=== PATIENT | female | born 1965 | race African-American/Black ===

== ENCOUNTER 2018-03-30 13:17 | Inpatient (IN) | payer OTHER ==
[2018-03-30 14:42] VITALS: BMI 18.8
--- NOTE | 2018-03-30 15:18 | HP ---
COWS - Scale Resting Pulse: 1= [place] 81-100 Sweatin=Flushed/Facial Moisture Restless Observation: 3= Extraneous Movement Pupil Size: 2= Moderately Dilated Bone or Joint Aches: 2= Severe Diffuse Aches Runny Nose/ Eye Tearin= Runny Nose/Eyes GI Upset > 30mins: 3= Vomiting/Diarrhea Tremor Observation: 2= Slight Tremor Visible Yawning Observation: 2= >3x During Session Anxiety or Irritability: 2=Irritable/Anxious Goose Flesh Skin: 0=Smooth Skin COWS Score: 21 CIWA Score - CIWA Score Nausea/Vomitin Muscle Tremors: 3 Anxiety: 3 Agitation: 3 Paroxysmal Sweats: 1-Minimal Palms Moist Orientation: 0-Oriented Tacttile Disturbances: 1-Very Mild Itch/Numbness Auditory Disturbances: 1-Very Mild Visual Disturbances: 0-None Headache: 2-Mild CIWA-Ar Total Score: 17 Admission ROS BHS - HPI Chief Complaint: for inpatient detox from heroin,alcohol,cocaine Allergies/Adverse Reactions: Allergies Allergy/AdvReac Type Severity Reaction Status Date / Time No Known Allergies Allergy Verified 03/30/18 15:13 History of Present Illness: this 52 years old female with heroin,alcohol,cocaine dependence,seeking detox, withdrawal symptom,last detox 2017 [facility] syncope hepatitis c sle,borderlined dm,non compliance with medication prolapsed uterus nicotine dependence weight loss anxiety,depression,insomnia rash both hands asthma multiple admissions in detox but keep relapsing longest period of sobriety 20 years Exam Limitations: No Limitations - Ebola screening Have you traveled outside of the country in the last 21 days: No (N) Have you had contact with anyone from an Ebola affected area: No Have you been sick,other than usual withdrawal symptoms: No Do you have a fever: No - Review of Systems Constitutional: Chills, Loss of Appetite, Malaise, Night Sweats, Changes in sleep, Unintentional Wgt. Loss, Other EENT: reports: Tearing, Nose Congestion Respiratory: reports: Wheezing (asthma), Other Cardiac: reports: No Symptoms Reported GI: reports: Diarrhea, Nausea, Vomiting, Abdominal cramping : reports: No Symptoms Reported Musculoskeletal: reports: Back Pain, Joint Pain, Muscle Pain, Joint Stiffness Integumentary: reports: Dryness Neuro: reports: Headache, Tremors Endocrine: reports: No Symptoms Reported, Other (sle) Hematology: reports: No Symptoms Reported Psychiatric: reports: No Sypmtoms Reported, Judgement Intact, Mood/Affect Appropiate, Orientated x3 (insomnia), Anxious, Depressed Patient History - Patient Medical History Hx Anemia: No Hx Asthma: Yes (on albuterol inhaler) Hx Chronic Obstructive Pulmonary Disease (COPD): No Hx Cancer: No Hx Cardiac Disorders: No Hx Congestive Heart Failure: No Hx Hypertension: Yes (non compliance) Hx Hypercholesterolemia: No Hx Pacemaker: No HX Cerebrovascular Accident: No Hx Seizures: No Hx Dementia: No Hx Diabetes: Yes (borderlined dm) Hx Gastrointestinal Disorders: Yes (gastritis) Hx Liver Disease: Yes (hepatitis c) Hx Genitourinary Disorders: Yes (prolapsed uterus) Hx Sexually Transmitted Disorders: No Hx Renal Disease (ESRD): No Hx Thyroid Disease: No Hx Human Immunodeficiency Virus (HIV): No (last 01/19) Hx Hepatitis C: Yes (not treated) Hx Depression: Yes (anxiety) Hx Suicide Attempt: No Hx Bipolar Disorder: No Hx Schizophrenia: No Other Medical History: insomnia - Patient Surgical History Past Surgical History: No - PPD History Previous Implant?: Yes Documented Results: Negative w/o proof Implanted On Prior [facility] Admission?: No PPD to be Administered?: Yes - Reproductive History Patient is a Female of Child Bearing Age (11 -55 yrs old): Yes Patient : No - Smoking Cessation Smoking history: Current every day smoker Have you smoked in the past 12 months: Yes Aproximately how many cigarettes per day: 10 Cigars Per Day: 0 Hx Chewing Tobacco Use: No Initiated information on smoking cessation: Yes 'Breaking Loose' booklet given: 03/30/18 - Substance & Tx. History Hx Alcohol Use: Yes Hx Substance Use: Yes Substance Use Type: Alcohol, Cocaine, Heroin Hx Substance Use Treatment: Yes ([address] [place] [id number]) - Substances Abused Heroin Route: Inhalation Frequency: Daily Amount used: 10 bags Age of first use: 22 Date of Last Use: 03/30/18 Alcohol Route: Oral Frequency: Daily Amount used: 2-3 12 oz cans beer Age of first use: 49 Date of Last Use: 03/30/18 Crack Route: Smoking Frequency: Daily Amount used: 6 bags Age of first use: 50 Date of Last Use: 03/30/18 Family Disease History - Family Disease History Family Disease History: Heart Disease: Mother () Admission Physical Exam [facility] - Vital Signs Vital Signs: Vital Signs - 24 hr 03/30/18 14:38 Temperature 98 F Pulse Rate 83 Respiratory 19 Rate Blood Pressure 140/83 - Physical General Appearance: Yes: Moderate Distress, Tremorous, Irritable, Sweating, Anxious HEENTM: Yes: Normal ENT Inspection, Normocephalic, TESSA, Pharynx Normal, Other ( no teeth no denture) Respiratory: Yes: Wheezing Neck: Yes: Within Normal Limits, Supple, Trachea in good position Breast: Yes: Within Normal Limits Cardiology: Yes: Within Normal Limits, Regular Rhythm, Regular Rate, S1, S2 Abdominal: Yes: Within Normal Limits, Normal Bowel Sounds, Non Tender, Flat, Soft Genitourinary: Yes: Within Normal Limits, Other (prolapse uterus) Back: Yes: Muscle Spasm Musculoskeletal: Yes: Back pain, Joint Stiffness, Muscle Pain Extremities: Yes: Within Normal Limits, Normal Range of Motion, Tremors Neurological: Yes: kosher inspector II-XII NML intact, Fully Oriented, Alert, Motor Strength 5/5 Integumentary: Yes: Dry Lymphatic: Yes: Within Normal Limits - Diagnostic (1) Opioid dependence with withdrawal Current Visit: Yes Status: Acute (2) Alcohol dependence with uncomplicated withdrawal Current Visit: Yes Status: Acute (3) Cocaine dependence Current Visit: Yes Status: Acute (4) SLE (systemic lupus erythematosus related syndrome) Current Visit: Yes Status: Acute (5) Borderline diabetes mellitus Current Visit: Yes Status: Acute (6) Weight loss Current Visit: Yes Status: Acute (7) Prolapsed uterus Current Visit: Yes Status: Acute (8) Nicotine dependence Current Visit: Yes Status: Acute (9) Gastritis Current Visit: Yes Status: Acute (10) Asthma Current Visit: Yes Status: Acute (11) Insomnia secondary to depression with anxiety Current Visit: Yes Status: Acute Cleared for Admission [facility] - Detox or Rehab [facility] Level of Care: Medically Managed Detox Regimen/Protocol: Methadone/Librium [facility] Breath Alcohol Content Breath Alcohol Content: 0.016 Urine Pregancy Test - Result Urine Test Results: Negative- NO Line Present Urine Drug Screen - Results Drug Screen Negative: No Urine Drug Screen Results: RANDA-Cocaine, OPI-Opiates, OXY-Oxycodone
[2018-03-30] MEDS ORDERED: LOPERAMIDE HCL 2 MG CAPSULE PO PRN (15:52)
[2018-03-30] MEDS ORDERED: MAGNESIUM HYDROX 2400MG/30ML ORAL SUSPENSION 30 ML CUP PO PRN (15:52)
[2018-03-30] MEDS ORDERED: MENTHOL/PHENOL 1 EACH UD MM PRN (15:52)
[2018-03-30] MEDS ORDERED: NICOTINE POLACRILEX 2 MG GUM BC PRN (15:52)
[2018-03-30] MEDS ORDERED: ACETAMINOPHEN 325 MG TABLET (FP) PO PRN (15:52)
[2018-03-30] MEDS ORDERED: chlordiazePOXIDE HCL 25 MG CAPSULE PO PRN (15:52)
[2018-03-30] MEDS ORDERED: guaiFENesin/D-METHORPHAN HB 10 ML UNIT-DOSE CUPS PO PRN (15:52)
[2018-03-30] MEDS ORDERED: P-EPHED 60MG/TRIPROLIDI 2.5MG TABLET PO PRN (15:52)
[2018-03-30] MEDS ORDERED: IBUPROFEN 400 MG TABLET (FP) PO PRN (15:52)
[2018-03-30] MEDS ORDERED: hydrOXYzine PAMOATE 25 MG CAPSULE (FP) PO PRN (15:52)
[2018-03-30] MEDS ORDERED: MAGNESIUM CITRATE 300 ML BOTTLE PO PRN (15:52)
[2018-03-30] MEDS ORDERED: ALBUTEROL SO4 8 GM HFA INHALER IH PRN (15:56)
[2018-03-30] MEDS ORDERED: ALBUTEROL SO4 2.5/IPRATROPIUM 0.5 INH SOL 3 ML VIAL.NEB. NEB PRN (15:58)
[2018-03-30] MEDS: chlordiazePOXIDE HCL 25 MG CAPSULE PO SCH ×2 (16:37→22:18)
[2018-03-30] MEDS ORDERED: METHADONE HCL 10 MG TABLET (FOR DETOX USE ONLY) PO ONE ×2 (16:45→23:00)
[2018-03-30] MEDS: NICOTINE 21 MG/24 HOURS TOPICAL PATCH TD SCH (16:46)
[2018-03-30] MEDS ORDERED: MELATONIN 5 MG TABLETS PO PRN (22:00)
[2018-03-30] MEDS: THIAMINE HCL 100 MG TABLET (FP) PO SCH (22:17)
[2018-03-30] MEDS: HYDROXYCHLOROQUINE SO4 200 MG TABLET (FP) PO SCH (22:17)
[2018-03-30] MEDS: MAG HYDROX/AL HYDROX/SIMETH 30 ML UNIT-DOSE CUP PO PRN (22:20)
[2018-03-31 02:04] LABS: URINE APPEARANCE SLCLOUDY; URINE BILIRUBIN NEGATIVE (<2.0 mg/dL); URINE COLOR YELLOW; URINE GLUCOSE (UA) NEGATIVE (NEGATIVE); URINE KETONE NEGATIVE (NEGATIVE); URINE NITRITE NEGATIVE (NEGATIVE); URINE PROTEIN NEGATIVE (NEGATIVE); URINE UROBILINOGEN NEGATIVE mg/dL (0.2-1.0)
[2018-03-31 02:05] LABS: URINE LEUK ESTERASE 1+ (NEGATIVE)
[2018-03-31 02:10] LABS: EPI CELLS FEW /HPF (FEW); URINE BACTERIA RARE /hpf (NONE SEEN); URINE MUCUS RARE
[2018-03-31] MEDS: chlordiazePOXIDE HCL 25 MG CAPSULE PO SCH ×4 (05:46→23:01)
--- NOTE | 2018-03-31 08:53 | CONSULT ---
[facility] Psychiatric Consult - Data Date of interview: 03/31/18 Admission source: [facility] Identifying data: Patient is a 52 year old single female, mother of two, unemployed, homeless, and supported by [facility]. This is patient's first admission to detox at [facility]. Pt. admitted to for alcohol, cocaine, opiate dependence. Substance Abuse History: Smoking Cessation. Smoking history: Current every day smoker. Have you smoked in the past 12 months: Yes. Aproximately how many cigarettes per day: 10. Cigars Per Day: 0. Hx Chewing Tobacco Use: No. Initiated information on smoking cessation: Yes. 'Breaking Loose' booklet given : 03/30/18. - Substance & Tx. History. Hx Alcohol Use: Yes. Hx Substance Use : Yes. Substance Use Type: Alcohol, Cocaine, Heroin. Hx Substance Use Treatment: Yes ([address] [place] [address]). - Substances Abused. Heroin. Route: Inhalation. Frequency: Daily. Amount used: 10 bags. Age of first use: 22. Date of Last Use: 03/30/18. Alcohol. Route: Oral. Frequency: Daily. Amount used: 2-3 12 oz cans beer. Age of first use: 49. Date of Last Use: . Crack. Route: Smoking. Frequency: Daily. Amount used: 6 bags. Age of first use: 50. Date of Last Use: 03/30/18 Medical History: Asthma, hypertension, diabetes,gastritis prolapsed uterus, HIV Psychiatric History: Patient denies h/o psychiatric hospitalization, outpatient care, and suicide attempt. Physical/Sexual Abuse/Trauma History: denies. Mental Status Exam - Mental Status Exam Alert and Oriented to: Time, Place, Person Cognitive Function: Good Patient Appearance: Well Groomed Mood: Withdrawn, Euthymic Affect: Mood Congruent Patient Behavior: Cooperative Speech Pattern: Appropriate Voice Loudness: Moderately Soft/Quiet Thought Process: Intact, Goal Oriented Thought Disorder: Not Present Hallucinations: Denies Suicidal Ideation: Denies Homicidal Ideation: Denies Insight/Judgement: Poor Sleep: Fair Appetite: Fair Muscle strength/Tone: Normal Gait/Station: Other (Did not observe patient's gait.) Psychiatric Findings - Problem List ([place] 1, 2,3) (1) Alcohol dependence with uncomplicated withdrawal Current Visit: Yes Status: Acute (2) Cocaine dependence Current Visit: Yes Status: Chronic (3) Opioid dependence with withdrawal Current Visit: Yes Status: Acute - Initial Treatment Plan Initial Treatment Plan: Psychoeducation provided. Detoxification in progress. Observation.
--- NOTE | 2018-03-31 09:50 | EKG ---
Test Reason : Blood Pressure : / mmHG Vent. Rate : 134 BPM Atrial Rate : 134 BPM P-R Int : 120 ms QRS Dur : 068 ms QT Int : 292 ms P-R-T Axes : 077 080 050 degrees QTc Int : 436 ms SINUS TACHYCARDIA MODERATE VOLTAGE CRITERIA FOR LVH, MAY BE NORMAL VARIANT BORDERLINE ECG NO PREVIOUS ECGS AVAILABLE Confirmed by Darin Tsai MD ([id number]) on 03/31/2018 9:49:40 AM Referred By: Confirmed By:Darin Tsai MD
[2018-03-31] MEDS ORDERED: METHADONE HCL 10 MG TABLET (FOR DETOX USE ONLY) PO SCH (10:00)
[2018-03-31] MEDS: PRENATAL VITAMINS W/ FOLIC ACID TABLET (FP) PO SCH (10:34)
[2018-03-31] MEDS: HYDROXYCHLOROQUINE SO4 200 MG TABLET (FP) PO SCH ×2 (10:35→23:01)
[2018-03-31] MEDS: predniSONE 10 MG TABLET (UD) PO SCH (10:35)
[2018-03-31] MEDS: NICOTINE 21 MG/24 HOURS TOPICAL PATCH TD SCH (10:36)
[2018-03-31] MEDS: PANTOPRAZOLE 40 MG TABLET (FP) PO SCH (10:37)
[2018-03-31 10:42] LABS: HEMATOCRIT 38.5 % (32.4-45.2); HEMOGLOBIN 12.7 GM/dL (10.7-15.3); MEAN CELL VOLUME 100.1 fl (80-96); MEAN PLT VOLUME 8.2 fl (7.5-11.1); PLATELET COUNT 227 K/MM3 (134-434); RBC 3.84 M/mm3 (3.60-5.2); RDW 14.9 % (11.6-15.6); WHITE BLOOD COUNT 3.6 K/mm3 (4.0-10.0)
[2018-03-31 10:49] LABS: ALBUMIN 2.9 g/dl (3.4-5.0); ANION GAP 8 MMOL/L (8-16); BILIRUBIN,TOTAL 0.2 mg/dL (0.2-1.0); BLOOD UREA NITROGEN 15 mg/dL (7-18); CALCIUM 8.8 mg/dL (8.5-10.1); CHLORIDE 106 mmol/L (98-107); CO2 28 mmol/L (21-32); CREATININE 0.9 mg/dL (0.55-1.02); GLUCOSE,RANDOM 94 mg/dL (74-106); POTASSIUM 4.7 mmol/L (3.5-5.1); SGOT/AST 38 U/L (15-37); SGPT/ALT 24 U/L (12-78); SODIUM 142 mmol/L (136-145)
[2018-03-31 10:50] LABS: ALK PHOS 94 U/L (45-117); TOT PROT 8.6 g/dl (6.4-8.2)
--- NOTE | 2018-03-31 11:41 | PN ---
S CIWA - CIWA Score Nausea/Vomitin-Mild Nausea/No Vomiting Muscle Tremors: 2 Anxiety: 3 Agitation: 3 Paroxysmal Sweats: 3 Orientation: 0-Oriented Tacttile Disturbances: 0-None Auditory Disturbances: 0-None Visual Disturbances: 0-None Headache: 1-Very Mild CIWA-Ar Total Score: 13 BHS COWS - Scale Resting Pulse: 1= [place] 81-100 Sweatin= Chills/Flushing Restless Observation: 1= Difficult to Sit Still Pupil Size: 1= Pupils >than Normal Bone or Joint Aches: 1= Mild Discomfort Runny Nose/ Eye Tearin= None GI Upset > 30mins: 2= Nausea/Diarrhea Tremor Observation of Outstretched Hands: 1= Tremor [place], Not Seen Yawning Observation: 2= >3x During Session Anxiety or Irritability: 2=Irritable/Anxious Goose Flesh Skin: 0=Smooth Skin COWS Score: 12 S Progress Note (SOAP) Subjective: interrupted sleep, body aches, midopeigastric pain (hx ogf gastritis), sweats Objective: 03/31/18 11:37 Vital Signs Temperature 98.1 F 03/31/18 09:18 Pulse Rate 87 03/31/18 09:18 Respiratory Rate 16 03/31/18 09:18 Blood Pressure 137/76 03/31/18 09:18 O2 Sat by Pulse Oximetry (%) Laboratory Last Values WBC 3.6 K/mm3 (4.0-10.0) L 03/31/18 06:00 RBC 3.84 M/mm3 (3.60-5.2) 03/31/18 06:00 Hgb 12.7 GM/dL (10.7-15.3) 03/31/18 06:00 Hct 38.5 % (32.4-45.2) 03/31/18 06:00 MCV 100.1 fl (80-96) H 03/31/18 06:00 MCH 33.0 pg (25.7-33.7) 03/31/18 06:00 MCHC 33.0 g/dl (32.0-36.0) 03/31/18 06:00 RDW 14.9 % (11.6-15.6) 03/31/18 06:00 Plt Count 227 K/MM3 (134-434) 03/31/18 06:00 MPV 8.2 fl (7.5-11.1) 03/31/18 06:00 Sodium 142 mmol/L (136-145) 03/31/18 06:00 Potassium 4.7 mmol/L (3.5-5.1) 03/31/18 06:00 Chloride 106 mmol/L (98-107) 03/31/18 06:00 Carbon Dioxide 28 mmol/L (21-32) 03/31/18 06:00 Anion Gap 8 MMOL/L (8-16) 03/31/18 06:00 BUN 15 mg/dL (7-18) 03/31/18 06:00 Creatinine 0.9 mg/dL (0.55-1.02) 03/31/18 06:00 Creat Clearance w eGFR > 60 (>60) 03/31/18 06:00 POC Glucometer 93 UNITS (80-120) 03/31/18 05:45 Random Glucose 94 mg/dL (74-106) 03/31/18 06:00 Calcium 8.8 mg/dL (8.5-10.1) 03/31/18 06:00 Total Bilirubin 0.2 mg/dL (0.2-1.0) 03/31/18 06:00 AST 38 U/L (15-37) H 03/31/18 06:00 ALT 24 U/L (12-78) 03/31/18 06:00 Alkaline Phosphatase 94 U/L (45-117) 03/31/18 06:00 Total Protein 8.6 g/dl (6.4-8.2) H 03/31/18 06:00 Albumin 2.9 g/dl (3.4-5.0) L 03/31/18 06:00 Urine Color Yellow 03/30/18 23:00 Urine Appearance Slcloudy 03/30/18 23:00 Urine pH 5.0 (5.0-8.0) 03/30/18 23:00 Ur Specific [place] 1.018 (1.001-1.035) 03/30/18 23:00 Urine Protein Negative (NEGATIVE) 03/30/18 23:00 Urine Glucose (UA) Negative (NEGATIVE) 03/30/18 23:00 Urine Ketones Negative (NEGATIVE) 03/30/18 23:00 Urine Blood Negative (NEGATIVE) 03/30/18 23:00 Urine Nitrite Negative (NEGATIVE) 03/30/18 23:00 Urine Bilirubin Negative (<2.0 mg/dL) 03/30/18 23:00 Urine Urobilinogen Negative mg/dL (0.2-1.0) 03/30/18 23:00 Ur Leukocyte Esterase 1+ (NEGATIVE) H 03/30/18 23:00 Urine WBC (Auto) 6 /hpf (3-5) 03/30/18 23:00 Urine RBC (Auto) 1 /hpf (0-3) 03/30/18 23:00 Ur Epithelial Cells Few /HPF (FEW) 03/30/18 23:00 Urine Bacteria Rare /hpf (NONE SEEN) 03/30/18 23:00 Urine Mucus Rare 03/30/18 23:00 Assessment: 03/31/18 11:39 Aox3 no distress no adventitious breath sounds bS x 4 non tender non distended full ROM Plan: increase fluids prontonix in AM continue detox continue to monitor
[2018-03-31 11:42] LABS: SICKLE CELL SCREEN NEGATIVE (NEGATIVE)
[2018-03-31] MEDS: VERAPAMIL HCL 240 MG E.R. TABLET (FP) PO SCH (11:49)
[2018-03-31] MEDS: THIAMINE HCL 100 MG TABLET (FP) PO SCH (23:01)
[2018-03-31] MEDS: MAG HYDROX/AL HYDROX/SIMETH 30 ML UNIT-DOSE CUP PO PRN (23:03)
[2018-04-01] MEDS: chlordiazePOXIDE HCL 25 MG CAPSULE PO SCH ×2 (05:53→10:06)
[2018-04-01] MEDS ORDERED: RANITIDINE HCL 150 MG TABLET (FP) PO SCH (10:00)
[2018-04-01] MEDS: PANTOPRAZOLE 40 MG TABLET (FP) PO SCH (10:06)
[2018-04-01] MEDS: PRENATAL VITAMINS W/ FOLIC ACID TABLET (FP) PO SCH (10:06)
[2018-04-01] MEDS: predniSONE 10 MG TABLET (UD) PO SCH (10:07)
[2018-04-01] MEDS: NICOTINE 21 MG/24 HOURS TOPICAL PATCH TD SCH (10:07)
[2018-04-01] MEDS: VERAPAMIL HCL 240 MG E.R. TABLET (FP) PO SCH (10:07)
[2018-04-01] MEDS: METHADONE HCL 5 MG TABLET (FOR DETOX USE ONLY) PO SCH (10:07)
[2018-04-01] MEDS: HYDROXYCHLOROQUINE SO4 200 MG TABLET (FP) PO SCH ×2 (10:08→22:08)
--- NOTE | 2018-04-01 11:08 | PN ---
S CIWA - CIWA Score Nausea/Vomitin Muscle Tremors: 2 Anxiety: 2 Agitation: 1-Slight > Activity Paroxysmal Sweats: 3 Orientation: 0-Oriented Tacttile Disturbances: 1-Very Mild Itch/Numbness Auditory Disturbances: 0-None Visual Disturbances: 0-None Headache: 0-None Present CIWA-Ar Total Score: 12 BHS COWS - Scale Resting Pulse: 0= [place] 80 or Below Sweatin= Chills/Flushing Restless Observation: 1= Difficult to Sit Still Pupil Size: 1= Pupils >than Normal Bone or Joint Aches: 1= Mild Discomfort Runny Nose/ Eye Tearin= Nasal Congestion GI Upset > 30mins: 2= Nausea/Diarrhea Tremor Observation of Outstretched Hands: 1= Tremor [place], Not Seen Yawning Observation: 0= None Anxiety or Irritability: 1=Feels Anxious/Irritable Goose Flesh Skin: 0=Smooth Skin COWS Score: 9 BHS Progress Note (SOAP) Subjective: interrupted sleep, sweats, librium bothers her stomach Objective: 04/01/18 11:06 Vital Signs Temperature 97.3 F L 04/01/18 09:29 Pulse Rate 88 04/01/18 09:29 Respiratory Rate 18 04/01/18 09:29 Blood Pressure 130/83 04/01/18 09:29 O2 Sat by Pulse Oximetry (%) Laboratory Tests 03/30/18 03/30/18 03/31/18 15:41 23:00 05:45 WBC RBC Hgb Hct MCV MCH MCHC RDW Plt Count MPV Sickle Cell Screen Sodium Potassium Chloride Carbon Dioxide Anion Gap BUN Creatinine Creat Clearance w eGFR POC Glucometer 115 93 Random Glucose Calcium Total Bilirubin AST ALT Alkaline Phosphatase Total Protein Albumin Urine Color Yellow Urine Appearance Slcloudy Urine pH 5.0 Ur Specific [place] 1.018 Urine Protein Negative Urine Glucose (UA) Negative Urine Ketones Negative Urine Blood Negative Urine Nitrite Negative Urine Bilirubin Negative Urine Urobilinogen Negative Ur Leukocyte Esterase 1+ H Urine WBC (Auto) 6 Urine RBC (Auto) 1 Ur Epithelial Cells Few Urine Bacteria Rare Urine Mucus Rare 03/31/18 03/31/18 04/01/18 06:00 06:00 06:27 WBC 3.6 L RBC 3.84 Hgb 12.7 Hct 38.5 MCV 100.1 H MCH 33.0 MCHC 33.0 RDW 14.9 Plt Count 227 MPV 8.2 Sickle Cell Screen Negative Sodium 142 Potassium 4.7 Chloride 106 Carbon Dioxide 28 Anion Gap 8 BUN 15 Creatinine 0.9 Creat Clearance w eGFR > 60 POC Glucometer 136 Random Glucose 94 Calcium 8.8 Total Bilirubin 0.2 AST 38 H ALT 24 Alkaline Phosphatase 94 Total Protein 8.6 H Albumin 2.9 L Urine Color Urine Appearance Urine pH Ur Specific [place] Urine Protein Urine Glucose (UA) Urine Ketones Urine Blood Urine Nitrite Urine Bilirubin Urine Urobilinogen Ur Leukocyte Esterase Urine WBC (Auto) Urine RBC (Auto) Ur Epithelial Cells Urine Bacteria Urine Mucus pt aox3 in nad ambulating Assessment: 04/01/18 11:06 withdrawal sx';s dyspesia Plan: cont detox increase fluids zantac 150mg bid
[2018-04-01] MEDS: chlordiazePOXIDE 5 MG CAPSULE PO SCH ×2 (17:30→22:08)
[2018-04-01] MEDS: THIAMINE HCL 100 MG TABLET (FP) PO SCH (22:08)
[2018-04-02] MEDS: chlordiazePOXIDE 5 MG CAPSULE PO SCH ×2 (05:30→10:46)
--- NOTE | 2018-04-02 10:07 | PN ---
BHS Progress Note (SOAP) Subjective: tremor trouble sleep at night sweat joints pain body aches Objective: 04/02/18 10:05 Vital Signs Temperature 97.8 F 04/02/18 09:33 Pulse Rate 81 04/02/18 09:33 Respiratory Rate 16 04/02/18 09:33 Blood Pressure 102/65 04/02/18 09:33 O2 Sat by Pulse Oximetry (%) Laboratory Last Values WBC 3.6 K/mm3 (4.0-10.0) L 03/31/18 06:00 RBC 3.84 M/mm3 (3.60-5.2) 03/31/18 06:00 Hgb 12.7 GM/dL (10.7-15.3) 03/31/18 06:00 Hct 38.5 % (32.4-45.2) 03/31/18 06:00 MCV 100.1 fl (80-96) H 03/31/18 06:00 MCH 33.0 pg (25.7-33.7) 03/31/18 06:00 MCHC 33.0 g/dl (32.0-36.0) 03/31/18 06:00 RDW 14.9 % (11.6-15.6) 03/31/18 06:00 Plt Count 227 K/MM3 (134-434) 03/31/18 06:00 MPV 8.2 fl (7.5-11.1) 03/31/18 06:00 Sickle Cell Screen Negative (NEGATIVE) 03/31/18 06:00 Sodium 142 mmol/L (136-145) 03/31/18 06:00 Potassium 4.7 mmol/L (3.5-5.1) 03/31/18 06:00 Chloride 106 mmol/L (98-107) 03/31/18 06:00 Carbon Dioxide 28 mmol/L (21-32) 03/31/18 06:00 Anion Gap 8 MMOL/L (8-16) 03/31/18 06:00 BUN 15 mg/dL (7-18) 03/31/18 06:00 Creatinine 0.9 mg/dL (0.55-1.02) 03/31/18 06:00 Creat Clearance w eGFR > 60 (>60) 03/31/18 06:00 POC Glucometer 96 UNITS (80-120) 04/02/18 05:29 Random Glucose 94 mg/dL (74-106) 03/31/18 06:00 Calcium 8.8 mg/dL (8.5-10.1) 03/31/18 06:00 Total Bilirubin 0.2 mg/dL (0.2-1.0) 03/31/18 06:00 AST 38 U/L (15-37) H 03/31/18 06:00 ALT 24 U/L (12-78) 03/31/18 06:00 Alkaline Phosphatase 94 U/L (45-117) 03/31/18 06:00 Total Protein 8.6 g/dl (6.4-8.2) H 03/31/18 06:00 Albumin 2.9 g/dl (3.4-5.0) L 03/31/18 06:00 Urine Color Yellow 03/30/18 23:00 Urine Appearance Slcloudy 03/30/18 23:00 Urine pH 5.0 (5.0-8.0) 03/30/18 23:00 Ur Specific [place] 1.018 (1.001-1.035) 03/30/18 23:00 Urine Protein Negative (NEGATIVE) 03/30/18 23:00 Urine Glucose (UA) Negative (NEGATIVE) 03/30/18 23:00 Urine Ketones Negative (NEGATIVE) 03/30/18 23:00 Urine Blood Negative (NEGATIVE) 03/30/18 23:00 Urine Nitrite Negative (NEGATIVE) 03/30/18 23:00 Urine Bilirubin Negative (<2.0 mg/dL) 03/30/18 23:00 Urine Urobilinogen Negative mg/dL (0.2-1.0) 03/30/18 23:00 Ur Leukocyte Esterase 1+ (NEGATIVE) H 03/30/18 23:00 Urine WBC (Auto) 6 /hpf (3-5) 03/30/18 23:00 Urine RBC (Auto) 1 /hpf (0-3) 03/30/18 23:00 Ur Epithelial Cells Few /HPF (FEW) 03/30/18 23:00 Urine Bacteria Rare /hpf (NONE SEEN) 03/30/18 23:00 Urine Mucus Rare 03/30/18 23:00 RPR Titer Nonreactive (NONREACTIVE) 03/31/18 06:00 lab noted Assessment: 04/02/18 10:07 withdrawal sx Plan: continue detox
[2018-04-02] MEDS: PRENATAL VITAMINS W/ FOLIC ACID TABLET (FP) PO SCH (10:45)
[2018-04-02] MEDS: VERAPAMIL HCL 240 MG E.R. TABLET (FP) PO SCH (10:46)
[2018-04-02] MEDS: predniSONE 10 MG TABLET (UD) PO SCH (10:46)
[2018-04-02] MEDS: METHADONE HCL 5 MG TABLET (FOR DETOX USE ONLY) PO SCH (10:46)
[2018-04-02] MEDS: HYDROXYCHLOROQUINE SO4 200 MG TABLET (FP) PO SCH ×2 (10:46→22:02)
[2018-04-02] MEDS: PANTOPRAZOLE 40 MG TABLET (FP) PO SCH (10:46)
[2018-04-02] MEDS: NICOTINE 21 MG/24 HOURS TOPICAL PATCH TD SCH (10:47)
[2018-04-02] MEDS: chlordiazePOXIDE HCL 10 MG CAPSULE PO SCH ×2 (17:17→22:02)
--- NOTE | 2018-04-02 17:48 | PN ---
S Progress Note Note: Vital Signs Temperature 97.7 F 04/02/18 13:30 Pulse Rate 94 H 04/02/18 13:30 Respiratory Rate 18 04/02/18 13:30 Blood Pressure 116/85 04/02/18 13:30 O2 Sat by Pulse Oximetry (%) Patient currently stable. Patient schedule to attend rehab tomorrow. Patient in stable condition for discharge in morning.
[2018-04-02] MEDS: THIAMINE HCL 100 MG TABLET (FP) PO SCH (22:02)
[2018-04-03] MEDS: chlordiazePOXIDE HCL 10 MG CAPSULE PO SCH (05:41)
[2018-04-03] MEDS: MAG HYDROX/AL HYDROX/SIMETH 30 ML UNIT-DOSE CUP PO PRN (05:42)
[2018-04-03 06:45] VITALS: BP 127/78; PULSE 72; TEMP 97.7
--- NOTE | 2018-04-03 08:17 | PN ---
BHS Progress Note (SOAP) Subjective: Pt better w/o complaints Objective: 04/03/18 08:13 Vital Signs Temperature 97.7 F 04/03/18 06:00 Pulse Rate 72 04/03/18 06:00 Respiratory Rate 18 04/03/18 06:00 Blood Pressure 127/78 04/03/18 06:00 O2 Sat by Pulse Oximetry (%) Laboratory Tests 03/30/18 03/30/18 03/31/18 15:41 23:00 05:45 WBC RBC Hgb Hct MCV MCH MCHC RDW Plt Count MPV Sickle Cell Screen Sodium Potassium Chloride Carbon Dioxide Anion Gap BUN Creatinine Creat Clearance w eGFR POC Glucometer 115 93 Random Glucose Calcium Total Bilirubin AST ALT Alkaline Phosphatase Total Protein Albumin Urine Color Yellow Urine Appearance Slcloudy Urine pH 5.0 Ur Specific [place] 1.018 Urine Protein Negative Urine Glucose (UA) Negative Urine Ketones Negative Urine Blood Negative Urine Nitrite Negative Urine Bilirubin Negative Urine Urobilinogen Negative Ur Leukocyte Esterase 1+ H Urine WBC (Auto) 6 Urine RBC (Auto) 1 Ur Epithelial Cells Few Urine Bacteria Rare Urine Mucus Rare RPR Titer 03/31/18 03/31/18 03/31/18 06:00 06:00 06:00 WBC 3.6 L RBC 3.84 Hgb 12.7 Hct 38.5 MCV 100.1 H MCH 33.0 MCHC 33.0 RDW 14.9 Plt Count 227 MPV 8.2 Sickle Cell Screen Negative Sodium 142 Potassium 4.7 Chloride 106 Carbon Dioxide 28 Anion Gap 8 BUN 15 Creatinine 0.9 Creat Clearance w eGFR > 60 POC Glucometer Random Glucose 94 Calcium 8.8 Total Bilirubin 0.2 AST 38 H ALT 24 Alkaline Phosphatase 94 Total Protein 8.6 H Albumin 2.9 L Urine Color Urine Appearance Urine pH Ur Specific [place] Urine Protein Urine Glucose (UA) Urine Ketones Urine Blood Urine Nitrite Urine Bilirubin Urine Urobilinogen Ur Leukocyte Esterase Urine WBC (Auto) Urine RBC (Auto) Ur Epithelial Cells Urine Bacteria Urine Mucus RPR Titer Nonreactive 04/01/18 04/01/18 04/02/18 06:27 16:45 05:29 WBC RBC Hgb Hct MCV MCH MCHC RDW Plt Count MPV Sickle Cell Screen Sodium Potassium Chloride Carbon Dioxide Anion Gap BUN Creatinine Creat Clearance w eGFR POC Glucometer 136 145 96 Random Glucose Calcium Total Bilirubin AST ALT Alkaline Phosphatase Total Protein Albumin Urine Color Urine Appearance Urine pH Ur Specific [place] Urine Protein Urine Glucose (UA) Urine Ketones Urine Blood Urine Nitrite Urine Bilirubin Urine Urobilinogen Ur Leukocyte Esterase Urine WBC (Auto) Urine RBC (Auto) Ur Epithelial Cells Urine Bacteria Urine Mucus RPR Titer 04/03/18 05:45 WBC RBC Hgb Hct MCV MCH MCHC RDW Plt Count MPV Sickle Cell Screen Sodium Potassium Chloride Carbon Dioxide Anion Gap BUN Creatinine Creat Clearance w eGFR POC Glucometer 263 Random Glucose Calcium Total Bilirubin AST ALT Alkaline Phosphatase Total Protein Albumin Urine Color Urine Appearance Urine pH Ur Specific [place] Urine Protein Urine Glucose (UA) Urine Ketones Urine Blood Urine Nitrite Urine Bilirubin Urine Urobilinogen Ur Leukocyte Esterase Urine WBC (Auto) Urine RBC (Auto) Ur Epithelial Cells Urine Bacteria Urine Mucus RPR Titer pt aox3 lying in bed in nad Assessment: 04/03/18 08:14 detox completed Plan: d/c today cont hydration rehab - [facility]
--- NOTE | 2018-04-03 08:19 | DS ---
[facility] Detox Discharge Summary Admission Date: 03/30/18 Discharge Date: 04/03/18 - History Present History: Alcohol Dependence, Cocaine Dependence, Opioid Dependence - Physical Exam Results Vital Signs: Vital Signs Temperature 97.7 F 04/03/18 06:00 Pulse Rate 72 04/03/18 06:00 Respiratory Rate 18 04/03/18 06:00 Blood Pressure 127/78 04/03/18 06:00 O2 Sat by Pulse Oximetry (%) - Treatment Hospital Course: Detox Protocol Followed, Detoxed Safely, Responded well, Discharged Condition Good - Medication Discharge Medications: Ambulatory Orders Albuterol Sulfate Inhaler - [Ventolin Hfa Inhaler -] 2 inh PO Q6H PRN 03/30/18 Hydroxychloroquine So4 [Plaquenil -] 200 mg PO BID 03/30/18 Pantoprazole Sodium [Protonix -] 40 mg PO DAILY 03/30/18 Verapamil HCl [Verapamil ER] 240 mg PO DAILY 03/30/18 predniSONE [Deltasone -] 10 mg PO DAILY 03/30/18 - Diagnosis (1) Alcohol dependence with uncomplicated withdrawal Current Visit: Yes Status: Chronic (2) Asthma Current Visit: Yes Status: Chronic Qualifiers: Asthma complication type: unspecified (3) Gastritis Current Visit: Yes Status: Chronic Qualifiers: Gastritis type: unspecified gastritis Chronicity: chronic Gastritis bleeding: without bleeding Qualified Code(s): K29.50 - Unspecified chronic gastritis without bleeding (4) Nicotine dependence Current Visit: Yes Status: Chronic Qualifiers: Nicotine product type: cigarettes Substance use status: uncomplicated Qualified Code(s): F17.210 - Nicotine dependence, cigarettes, uncomplicated (5) Opioid dependence with withdrawal Current Visit: Yes Status: Chronic (6) Cocaine dependence Current Visit: Yes Status: Chronic (7) SLE (systemic lupus erythematosus related syndrome) Current Visit: Yes Status: Chronic - AMA Did Patient Leave Against Medical Advice: No
[2018-04-03] MEDS ORDERED: METHADONE HCL 10 MG TABLET (FOR DETOX USE ONLY) PO ONE (09:20)
[2018-04-03] MEDS ORDERED: METHADONE HCL 10 MG TABLET (FOR DETOX USE ONLY) PO SCH (10:00)
[2018-04-04] MEDS ORDERED: METHADONE HCL 5 MG TABLET (FOR DETOX USE ONLY) PO SCH (06:00)
== END 2018-04-03 09:02 | disposition home or self-care (01) | DRG 897 ==
LOC: YASAS 13:17 → Y6N 16:09
PROVIDERS: ADMIT Surgery; ATTEND Surgery
PROC: HZ2ZZZZ Detoxification Services for Substance Abuse Treatment (ICD-10-PCS; principal; 2018-03-30)
DX: F11.23 Opioid dependence with withdrawal (principal); F14.20 Cocaine dependence, uncomplicated; F10.230 Alcohol dependence with withdrawal, uncomplicated; F17.210 Nicotine dependence, cigarettes, uncomplicated; F41.8 Other specified anxiety disorders; B18.2 Chronic viral hepatitis C; G47.00 Insomnia, unspecified; J45.20 Mild intermittent asthma, uncomplicated; K29.50 Unspecified chronic gastritis without bleeding; M32.9 Systemic lupus erythematosus, unspecified; N81.4 Uterovaginal prolapse, unspecified; E11.9 Type 2 diabetes mellitus without complications; Z91.14 Patient's other noncompliance with medication regimen; Z59.0 Homelessness
CPT/HCPCS: 36415; 80053; 81003; 81015; 82962; 85027; 85660; 86593; 93005; 93010